=== PATIENT | male | born 1990 ===

== ENCOUNTER 2024-02-03 11:36 | Emergency (ER) | payer MEDICAID ==
[~2024-02-03] VITALS: Ht 177.8 cm; Wt 75.0 kg
[2024-02-03 11:54] VITALS: BP 128/82; RESP 18; TEMP 97.7; O2SAT 99
[2024-02-03 12:12] VITALS: PULSE 66
[2024-02-03] MEDS: FLUORESCEIN SODIUM 1MG/STRIP LEFTEYE ONE (13:15)
[2024-02-03] MEDS: TETRACAINE 0.5% OPHTH DROPS 4ML LEFTEYE ONE (13:15)
[2024-02-03] MEDS: BALANCED SALT IRRIG SOLN 15ML IR ONE (13:30)
[2024-02-03] MEDS ORDERED: ERYT1OIN6 EACHEYE (13:41)
== END 2024-02-03 13:48 | disposition home or self-care (01) ==
LOC: ER 11:36
DX: H01.004 Unspecified blepharitis left upper eyelid (principal); Z98.890 Other specified postprocedural states
CPT/HCPCS: 99283